=== PATIENT | female | born 1995 | race Caucasian/White ===

== ENCOUNTER 2021-01-23 23:55 | Emergency (ER) | payer OTHER ==
[2021-01-24 00:01] VITALS: TEMP 97.9
[2021-01-24] MEDS ORDERED: ONDANSETRON 4 MG/2 ML VIAL IVP STA (00:22)
[2021-01-24] MEDS ORDERED: SODIUM CHLORIDE 0.9% 1,000 ML IV STA (00:22)
[2021-01-24] MEDS ORDERED: KETOROLAC 15 MG/ML 1 ML VIAL IVP STA (00:22)
[2021-01-24 00:45] LABS: Basophils # (A) 0.1 k/uL (0-0.2); Basophils % (A) 0 %; Eosinophils # (A) 0.3 k/uL (0-0.7); Eosinophils % (A) 2 %; HCT 42.8 % (34.0-46.0); HGB 14.3 gm/dL (11.4-16.0); Hypochromasia Slight; Lymphocytes # (A) 2.7 k/uL (1.0-4.8); Lymphocytes % (A) 20 %; MCH 31.6 pg (25.0-35.0); MCHC 33.5 g/dL (31.0-37.0); MCV 94.5 fL (80.0-100.0); Monocytes # (A) 0.8 k/uL (0-1.0); Monocytes % (A) 6 %; Neutrophils # (A) 9.6 k/uL (1.3-7.7); Neutrophils % (A) 70 %; Platelet Count 228 k/uL (150-450); Poikilocytosis Slight; RBC 4.53 m/uL (3.80-5.40); RDW 14.1 % (11.5-15.5); WBC 13.6 k/uL (3.8-10.6)
--- NOTE | 2021-01-24 00:52 | ED ---
General Adult HPI - General Chief complaint: Back Pain/Injury Stated complaint: Back & Side Pain Time Seen by Provider: 01/24/21 00:07 Source: patient Mode of arrival: ambulatory Limitations: no limitations - History of Present Illness Initial comments: 25-year-old female patient presents to the emergency department today for evaluation of right flank pain and right lower quadrant abdominal pain and urinary frequency. Patient states symptoms started a few days ago and have been worsening. States today she has been nauseated throughout the day with no appetite. Denies any fever or chills. Denies any dysuria, hematuria, urinary urgency. Denies history of kidney infection or kidney stone. States she has taken home tests that were negative. Denies history of abdominal surgery. Patient denies any recent rash, cough, shortness of breath, chest pain, diarrhea, constipation, back pain, numbness, tingling, dizziness, weakness, headache, visual changes, or any other complaints. - Related Data Previous Rx's Medication Instructions Recorded Cephalexin [Keflex] 500 mg PO Q6HR #28 cap 01/24/21 Ondansetron [Zofran ODT] 4 mg PO Q8HR PRN #10 tab 01/24/21 Allergies Allergy/AdvReac Type Severity Reaction Status Date / Time No Known Allergies Allergy Verified 01/24/21 00:00 Review of Systems ROS Statement: Those systems with pertinent positive or pertinent negative responses have been documented in the HPI. ROS Other: All systems not noted in ROS Statement are negative. Past Medical History Past Medical History: No Reported History History of Any Multi-Drug Resistant Organisms: None Reported Past Surgical History: Adenoidectomy, Tonsillectomy Past Psychological History: No Psychological Hx Reported Smoking Status: Vaper Past Alcohol Use History: Occasional Past Drug Use History: None Reported General Exam Limitations: no limitations General appearance: alert, in no apparent distress, other (This is a well-developed, well-nourished adult female patient in no acute distress. Vital signs upon presentation are temperature 97.9F, pulse 74, respirations 20, blood pressure 113/72, pulse ox 97% on room air.) ENT exam: Present: normal exam, normal oropharynx, mucous membranes moist Respiratory exam: Present: normal lung sounds bilaterally. Absent: respiratory distress, wheezes, rales, rhonchi, stridor Cardiovascular Exam: Present: regular rate, normal rhythm, normal heart sounds. Absent: systolic murmur, diastolic murmur, rubs, gallop, clicks GI/Abdominal exam: Present: soft, tenderness (Right lower quadrant), normal bowel sounds. Absent: distended, guarding, rebound, rigid Back exam: Present: normal inspection, CVA tenderness (R). Absent: CVA tenderness (L) Neurological exam: Present: alert, oriented X3, CN II-XII intact Psychiatric exam: Present: normal affect, normal mood Skin exam: Present: warm, dry, intact, normal color. Absent: rash Course Vital Signs 01/23/21 23:56 Temperature 97.9 F Pulse Rate 74 Respiratory 20 Rate Blood Pressure 113/72 O2 Sat by Pulse 97 Oximetry Medical Decision Making - Medical Decision Making 25-year-old female patient presents to the emergency department today for evaluation of right flank pain and urinary frequency. Physical examination r eveals mild right CVA tenderness right lower quadrant tenderness. White blood cell count is 13.6. BUN was 19. Urinalysis showed a turbid appearance with large leukocyte esterase, 16 white blood cells. She is not . CT abdomen and pelvis without contrast was obtained rule out kidney stone and showed no evidence for stone and and normal appendix. I did discuss findings and results with the patient. Given a 1 g of Rocephin IV here. She was given IV fluids. She'll be discharged with prescription for antibiotics and Zofran. Return parameters were discussed in detail. She verbalizes understanding and agrees with this plan. My attending is Dr. Dumont. - Lab Data Result diagrams: 01/24/21 00:24 01/24/21 00:24 Lab Results 01/24/21 01/24/21 01/24/21 Range/Units 00:24 00:24 00:24 WBC 13.6 H (3.8-10.6) k/uL RBC 4.53 (3.80-5.40) m/uL Hgb 14.3 (11.4-16.0) gm/dL Hct 42.8 (34.0-46.0) % MCV 94.5 (80.0-100.0) fL MCH 31.6 (25.0-35.0) pg MCHC 33.5 (31.0-37.0) g/dL RDW 14.1 (11.5-15.5) % Plt Count 228 (150-450) k/uL MPV 9.0 Neutrophils % 70 % Lymphocytes % 20 % Monocytes % 6 % Eosinophils % 2 % Basophils % 0 % Neutrophils # 9.6 H (1.3-7.7) k/uL Lymphocytes # 2.7 (1.0-4.8) k/uL Monocytes # 0.8 (0-1.0) k/uL Eosinophils # 0.3 (0-0.7) k/uL Basophils # 0.1 (0-0.2) k/uL Hypochromasia Slight Poikilocytosis Slight Sodium (137-145) mmol/L Potassium (3.5-5.1) mmol/L Chloride (98-107) mmol/L Carbon Dioxide (22-30) mmol/L Anion Gap mmol/L BUN (7-17) mg/dL Creatinine (0.52-1.04) mg/dL Est GFR (CKD-EPI)AfAm (>60 ml/min/1.73 sqM) Est GFR (CKD-EPI)NonAf (>60 ml/min/1.73 sqM) Glucose (74-99) mg/dL Calcium (8.4-10.2) mg/dL Total Bilirubin (0.2-1.3) mg/dL AST (14-36) U/L ALT (4-34) U/L Alkaline Phosphatase (38-126) U/L Total Protein (6.3-8.2) g/dL Albumin (3.5-5.0) g/dL Lipase (23-300) U/L Urine Color Yellow Urine Appearance Turbid H (Clear) Urine pH 7.5 (5.0-8.0) Ur Specific [place] 1.023 (1.001-1.035) Urine Protein Trace H (Negative) Urine Glucose (UA) Negative (Negative) Urine Ketones Negative (Negative) Urine Blood Negative (Negative) Urine Nitrite Negative (Negative) Urine Bilirubin Negative (Negative) Urine Urobilinogen <2.0 (<2.0) mg/dL Ur Leukocyte Esterase Large H (Negative) Urine WBC 16 H (0-5) /hpf Ur Squamous Epith Cells 11 H (0-4) /hpf Amorphous Sediment Moderate H (None) /hpf Urine HCG, Qual Not Detected (Not Detectd) 08/30/21 Range/Units 00:24 WBC (3.8-10.6) k/uL RBC (3.80-5.40) m/uL Hgb (11.4-16.0) gm/dL Hct (34.0-46.0) % MCV (80.0-100.0) fL MCH (25.0-35.0) pg MCHC (31.0-37.0) g/dL RDW (11.5-15.5) % Plt Count (150-450) k/uL MPV Neutrophils % % Lymphocytes % % Monocytes % % Eosinophils % % Basophils % % Neutrophils # (1.3-7.7) k/uL Lymphocytes # (1.0-4.8) k/uL Monocytes # (0-1.0) k/uL Eosinophils # (0-0.7) k/uL Basophils # (0-0.2) k/uL Hypochromasia Poikilocytosis Sodium 139 (137-145) mmol/L Potassium 4.1 (3.5-5.1) mmol/L Chloride 106 (98-107) mmol/L Carbon Dioxide 24 (22-30) mmol/L Anion Gap 9 mmol/L BUN 19 H (7-17) mg/dL Creatinine 0.70 (0.52-1.04) mg/dL Est GFR (CKD-EPI)AfAm >90 (>60 ml/min/1.73 sqM) Est GFR (CKD-EPI)NonAf >90 (>60 ml/min/1.73 sqM) Glucose 74 (74-99) mg/dL Calcium 9.7 (8.4-10.2) mg/dL Total Bilirubin <0.1 L (0.2-1.3) mg/dL AST 20 (14-36) U/L ALT 15 (4-34) U/L Alkaline Phosphatase 69 (38-126) U/L Total Protein 6.9 (6.3-8.2) g/dL Albumin 4.3 (3.5-5.0) g/dL Lipase 93 (23-300) U/L Urine Color Urine Appearance (Clear) Urine pH (5.0-8.0) Ur Specific [place] (1.001-1.035) Urine Protein (Negative) Urine Glucose (UA) (Negative) Urine Ketones (Negative) Urine Blood (Negative) Urine Nitrite (Negative) Urine Bilirubin (Negative) Urine Urobilinogen (<2.0) mg/dL Ur Leukocyte Esterase (Negative) Urine WBC (0-5) /hpf Ur Squamous Epith Cells (0-4) /hpf Amorphous Sediment (None) /hpf Urine HCG, Qual (Not Detectd) - Radiology Data Radiology results: report reviewed, image reviewed CT abdomen and pelvis without contrast was obtained. Report was reviewed in its entirety. Impression by Dr. Luciano shows normal appendix. No evidence of renal stone or obstruction. No acute abnormality. Disposition Clinical Impression: Urinary tract infection Disposition: HOME SELF-CARE Condition: Good Instructions (If sedation given, give patient instructions): Urinary Tract Infection in Women (ED) Additional Instructions: Take medications as directed. Complete antibiotic prescription in full. Return for any new, worsening, or concerning symptoms. Prescriptions: Cephalexin [Keflex] 500 mg PO Q6HR #28 cap Ondansetron [Zofran ODT] 4 mg PO Q8HR PRN #10 tab PRN Reason: Nausea Is patient prescribed a controlled substance at d/c from ED?: No Referrals: Terell Jeong DO [Primary Care Provider] - 1-2 days Time of Disposition: 01:29
[2021-01-24 01:00] LABS: ALT 15 U/L (4-34); AST 20 U/L (14-36); African American GFR (CKD) >90 (>60 ml/min/1.73 sqM); Albumin 4.3 g/dL (3.5-5.0); Alkaline Phosphatase 69 U/L (38-126); Amorphous Sediment,Urine Moderate /hpf; Anion Gap 9 mmol/L; Appearance,Urine Turbid (Clear); Bilirubin,Urine Negative (Negative); Blood Urea Nitrogen 19 mg/dL (7-17); Blood,Urine Negative (Negative); Calcium 9.7 mg/dL (8.4-10.2); Carbon Dioxide 24 mmol/L (22-30); Chloride 106 mmol/L (98-107); Color,Urine Yellow; Glucose 74 mg/dL (74-99); Glucose,Urine (UA) Negative (Negative); Ketones,Urine Negative (Negative); Leukocyte Esterase,Urine Large (Negative); Lipase 93 U/L (23-300); Nitrite,Urine Negative (Negative); Non-African American GFR(CKD) >90 (>60 ml/min/1.73 sqM); PH, Urine 7.5 (5.0-8.0); Potassium 4.1 mmol/L (3.5-5.1); Protein,Urine Trace (Negative); Sodium 139 mmol/L (137-145); Specific Gravity,Urine 1.023 (1.001-1.035); Squamous Epithelial Cell,Urine 11 /hpf (0-4); Total Bilirubin <0.1 mg/dL (0.2-1.3); Total Protein 6.9 g/dL (6.3-8.2); Urobilinogen,Urine <2.0 mg/dL (<2.0); WBC,Urine 16 /hpf (0-5)
--- NOTE | 2021-01-24 01:26 | CT ---
EXAMINATION TYPE: CT abdomen pelvis wo con DATE OF EXAM: 01/24/2021 COMPARISON: None HISTORY: pain CT DLP: 700.7 mGycm Automated exposure control for dose reduction was used. Images obtained from the diaphragm to the floor the pelvis without contrast. Lung bases are clear. There is no pleural effusion. Heart size is normal. There is no pericardial eff usion. Liver spleen stomach pancreas gallbladder appear normal. Bile ducts are not dilated. There is no adrenal mass. Kidneys have normal size. There is no retroperitoneal adenopathy. Ureters d o not appear dilated. I see no definite ureteral calculus. Bladder distends smoothly. There is no mary dence of renal calculus. There is no free fluid in the pelvis. Uterus is anteverted. There is no ingu inal hernia. There is no evidence of pelvic mass. Appendix appears partly filled with air and appears normal. There is no mesenteric edema. There is no ascites or free air. There is no bowel obstruction. The lumbar vertebra have normal alignment. There is no compression fracture. Bony pelvis is intact. T here is L5 spondylolysis without spondylolisthesis. Hip joints are intact. IMPRESSION: Normal appendix. No evidence of renal stone or obstruction. No acute abnormality..
[2021-01-24] MEDS ORDERED: cefTRIAXone IN SWFI 1,000 MG/10 ML SYRINGE IVP STA (01:29)
[2021-01-24] MEDS ORDERED: ACET/COD 300 MG/30 MG STARTER PACK 6 TAB BTL PO STA (01:31)
[2021-01-24 01:48] VITALS: BP 115/69; PULSE 70; RESP 18
== END 2021-01-24 01:48 | disposition home or self-care (01) ==
LOC: EC 23:55
DX: N39.0 Urinary tract infection, site not specified (principal); F17.290 Nicotine dependence, other tobacco product, uncomplicated; Z90.89 Acquired absence of other organs
CPT/HCPCS: 36415; 74176; 80053; 81001; 81025; 83690; 85025; 87086; 96361; 96374; 96375; 99284